=== PATIENT | female | born 1975 | race Asian ===

== ENCOUNTER 2019-05-10 19:52 | Emergency (ER) | payer MEDICAID ==
[2019-05-10] MEDS ORDERED: KETOROLAC 30 MG/1 ML ONE (20:51)
[2019-05-10 20:56] LABS: BASOPHILS # (AUTO) 0.06 x10^3/uL (0-0.1); BASOPHILS % (AUTO) 1 % (0-1); EOSINOPHILS % (AUTO) 6 % (1-7); LYMPHOCYTES # (AUTO) 2.06 x10^3/uL (1-3.4); LYMPHOCYTES % (AUTO) 26 % (22-44); MD NO; MEAN CORPUSCULAR HEMOGLOBIN 30.9 pg (27.0-34.8); MEAN CORPUSCULAR HGB CONC 33.2 g/dL (32.4-35.8); MEAN CORPUSCULAR VOLUME 93.1 fL (80-100); MEAN PLATELET VOLUME 7.8 fL (7.4-10.4); MONOCYTES # (AUTO) 0.45 x10^3/uL (0.2-0.8); MONOCYTES % (AUTO) 6 % (2-9); NEUTROPHILS # (AUTO) 4.71 x10^3/uL (1.8-6.8); NEUTROPHILS % (AUTO) 61 % (42-75); PLATELET COUNT 252 x10^3/uL (130-400); RED BLOOD COUNT 4.17 x10^6/uL (3.82-5.3); RED CELL DISTRIBUTION WIDTH 13.1 % (9.6-15.2)
[2019-05-10] MEDS ORDERED: KETOROLAC 30 MG/1 ML IM ONE (21:00)
[2019-05-10 21:08] LABS: ALANINE AMINOTRANSFERASE 32 U/L (12-78); ALBUMIN 3.7 g/dL (3.4-5.0); ANION GAP 6 mmol/L (5-15); CALCIUM 8.7 mg/dL (8.5-10.1); CHLORIDE 109 mmol/L (98-107); CREATININE 0.82 mg/dL (0.55-1.02)
[2019-05-10 21:11] LABS: ALKALINE PHOSPHATASE 93 U/L (45-117); BILIRUBIN,TOTAL 0.5 mg/dL (0.2-1.0); TOTAL PROTEIN 7.4 g/dL (6.4-8.2)
--- NOTE | 2019-05-10 21:21 | NUR ---
PT MEDICATED PER ORDERS. AMBULATED TO BR WITHOUT DIFFICULTY. INSTRUCTED ON CLEAN CATCH URINE SAMPLE.
[2019-05-10 21:40] VITALS: BP 147/90
[2019-05-10 21:47] LABS: HCG UR SG 1.013 (1.003-1.030); MICROSCOPIC AUTO
[2019-05-10 21:48] LABS: CULTURE INDICATED? YES
--- NOTE | 2019-05-10 22:04 | NUR ---
ADEOLA DOWNING AT FOR RECHECK.
--- NOTE | 2019-05-10 22:09 | NUR ---
D/C INSTRUCTIONS, MEDS & F/U APPT RV'WD WITH PT, SHE VERBALIZES UNDERSTANDING. RX GIVEN X1. PT AMBULATED OUT OF ED WITH WITHOUT DIFFICULTY.
== END 2019-05-10 22:12 | disposition home or self-care (01) ==
LOC: ED 21:02
DX: R51 Headache (principal); I10 Essential (primary) hypertension; M54.9 Dorsalgia, unspecified
CPT/HCPCS: 36415; 80053; 81001; 81025; 85025; 87086; 93005; 96372; 99284; J1885